=== PATIENT | female | born 1995 | race Caucasian/White ===

== ENCOUNTER 2017-01-12 11:04 | Emergency (ER) | payer BC ==
[2017-01-12 11:10] VITALS: BP 109/64; PULSE 76; TEMP 98.1; BMI 31.6
--- NOTE | 2017-01-12 11:19 | PDOC ---
History of Present Illness - General Chief Complaint: Pain, Acute Stated Complaint: low abd pain Time Seen by Provider: 01/12/17 11:08 History Source: Patient (Patient walked in along with referred by Dr Shea (PMD) with I spoke and he expressed concerns that the patient presentation may indicate an acute apendicitis. Patient reported acute sharp pain in the lower abdomen , right more than left side of new onset prior to arrival to her PMD today ), Care Provider Exam Limitations: No Limitations - History of Present Illness Timing/Duration: 24 hours Severity: moderate, severe Modifying Factors: worse with: cold therapy, eating, immobilization, medication , movement, rest, other Associated Symptoms: denies: denies symptoms, chest pain, cough, diaphoresis, fever/chills, headaches, loss of appetite, malaise, nausea/vomiting, rash, seizure, shortness of breath, syncope, weakness, other Past History - Travel Traveled outside of the country in the last 30 days: No Close contact w/someone who was outside of country & ill: No - Past Medical History Allergies/Adverse Reactions: Allergies Allergy/AdvReac Type Severity Reaction Status Date / Time No Known Allergies Allergy Verified 01/12/17 11:05 Home Medications: Ambulatory Orders Clonazepam [KlonoPIN] 0.5 mg PO DAILY 01/12/17 Dextroamphetamine/Amphetamine [Adderall Xr 20 mg Capsule] 20 mg PO DAILY Asthma: No Cancer: No Cardiac Disorders: No Diabetes: No HTN: No Psychiatric Problems: Yes (ANXIETY) Seizures: No Thyroid Disease: No - Surgical History Other Surgical History: IUD 01/13/17 15:24 - Reproductive History LMP Normal: Yes Is Patient Now?: No (#): 1 Para: 1 Spontaneous : 0 - Immunization History Immunization Up to Date: Yes - Psycho/Social/Smoking Cessation Hx Anxiety: Yes Suicidal Ideation: No Smoking History: Current every day smoker Have you smoked in the past 12 months: Yes Number of Cigarettes Smoked Daily: 10 Information on smoking cessation initiated: Yes 'Breaking Loose' booklet given: 04/08/13 Hx Alcohol Use: No Drug/Substance Use Hx: No Substance Use Type: None Hx Substance Use Treatment: No Review of Systems - Review of Systems Able to Perform ROS?: Yes Is the patient limited Romansh proficient: Yes Constitutional: Yes: Malaise HEENTM: No: Symptoms Reported, See HPI, Eye Pain, Blurred Vision, Tearing, Recent change in vision, Double Vision, Cataracts, Ear Pain, Ocular Prothesis, Ear Discharge, Nose Pain, Nose Congestion, Tinnitus, Nose Bleeding, Hearing Loss , Throat Pain, Throat Swelling, Mouth Pain, Dental Problems, Difficulty Swallowing, Mouth Swelling, Other Respiratory: No: Symptoms reported, See HPI, Cough, Orthopnea, Shortness of Breath, SOB with Exertion, SOB at Rest, Stridor, Wheezing, Productive cough, Hemoptysis, Other Cardiac (ROS): No: Symptoms Reported, See HPI, Chest Pain, Edema, Irregular Heart Rate, Lightheadedness, Palpitations, Syncope, Chest Tightness, Other ABD/GI: Yes: Symptoms Reported, See HPI : No: Symptoms Reported, See HPI, Burning, Dysuria, Discharge, Frequency, Flank Pain, Hematuria, Incontinence, Pain, Urgency, Testicular Mass, Testicular Swelling, Lesions, Testicular Pain, Other Musculoskeletal: No: Symptoms Reported, See HPI, Back Pain, Gout, Joint Pain, Joint Swelling, Muscle Pain, Muscle Weakness, Neck Pain, Joint Stiffness, Other Integumentary: No: Symptoms Reported, See HPI, Bruising, Change in Color, Change in Hair/Nails, Dryness, Erythema, Flushing, Lesions, Lumps, Pallor, Pruritus, Rash, Sweating, Other Neurological: No: Symptoms reported, See HPI, Headache, Numbness, Paresthesia, Pre-Existing Deficit, Seizure, Tingling, Tremors, Weakness, Unsteady Gait, Ataxia, Dizziness, Other Psychiatric: Yes: Anxiety All Other Systems: Reviewed and Negative *Physical Exam - Physical Exam Comments: 01/13/17 15:48 General Appearance: Yes: Nourished, Appropriately Dressed, Moderate Distress HEENT: positive: HEAVENLY Neck: positive: Supple Respiratory/Chest: positive: Lungs Clear Cardiovascular: positive: Regular Rate Gastrointestinal/Abdominal: positive: Normal Bowel Sounds, Tender (Bilateral lower abdomen pain at deeper palpation, minimal to moderate rebound tenderness) Lymphatic: negative: Adenopathy Musculoskeletal: positive: Normal Inspection Extremity: positive: Normal Capillary Refill Integumentary: positive: Normal Color, Dry, Warm Neurologic: positive: Fully Oriented, Alert, Normal Mood/Affect ED Treatment Course - LABORATORY CBC & Chemistry Diagram: 01/12/17 11:24 01/12/17 11:55 Medical Decision Making - Medical Decision Making Patient seen immediately from arrival, examined , tests ordered. My working diagnosis was subacute ovarian cyst rupture, remotely AP. Observed for 5 hours every hour by the hour, iv fluids, pain control achieved 01/13/17 15:50 *DC/Admit/Observation/Transfer Diagnosis at time of Disposition: Pelvic pain, Rupture of ovarian cyst - Discharge Dispostion Disposition: HOME Condition at time of disposition: Stable Admit: No - Referrals Referrals: Krystina Shea MD [Primary Care Provider] - - Patient Instructions Printed Discharge Instructions: DI for Ovarian Cyst
[2017-01-12] MEDS ORDERED: SODIUM CHLORIDE 1,000 ML IV ONE (11:22)
[2017-01-12 11:31] LABS: URINE APPEARANCE Clear; URINE BILIRUBIN Negative (NEGATIVE); URINE BLOOD Negative (NEGATIVE); URINE GLUCOSE (UA) Negative (NEGATIVE); URINE KETONE Negative (NEGATIVE); URINE LEUK ESTERASE Negative (NEGATIVE); URINE NITRITE Negative (NEGATIVE); URINE PROTEIN Negative (NEGATIVE); URINE UROBILINOGEN 0.2 (0.2-1.0)
[2017-01-12 11:35] LABS: URINE COLOR YELLOW
[2017-01-12 12:08] LABS: INR 1.06 (0.82-1.09); PROTHROMBIN TIME (PATIENT) 11.8 SEC (10.2-13.0)
[2017-01-12 12:25] LABS: ALBUMIN 4.2 g/dl (3.5-5.0); ALK PHOS 58 U/L (32-92); ANION GAP 4 (8-16); BILIRUBIN,TOTAL 0.5 mg/dl (0.2-1.0); CALCIUM 9.2 mg/dl (8.4-10.2); CO2 26 mmol/L (22-28); CREATININE 0.6 mg/dl (0.6-1.3); GLUCOSE,RANDOM 94 mg/dl (74-106); SGOT/AST 19 U/L (10-42); SGPT/ALT 24 U/L (10-40); TOT PROT 7.3 g/dl (6.4-8.3)
[2017-01-12 12:39] LABS: MCH 31.1 pg (25.7-33.7); MCHC 34.5 g/dl (32.0-36.0); MEAN CELL VOLUME 90.3 fl (80-96); RDW 12.6 % (11.6-15.6); WHITE BLOOD COUNT 9.9 K/mm3 (4.0-10.8)
[2017-01-12 13:13] LABS: PLATELET ESTIMATE ADEQUATE (NORMAL)
[2017-01-12 13:14] LABS: REACTIVE LYMPHOCYTES 2 % (0-80)
[2017-01-12] MEDS ORDERED: KETOROLAC TROMETHAMINE 30 MG/1 ML VIAL IVPUSH ONE (14:47)
[2017-01-12] MEDS ORDERED: KETOROLAC TROMETHAMINE 30 MG/1 ML VIAL ONE (14:56)
== END 2017-01-12 15:59 | disposition home or self-care (01) ==
LOC: FER 11:04
PROC: 3E0333Z Introduction of Anti-inflammatory into Peripheral Vein, Percutaneous Approach (ICD-10-PCS; principal; 2017-01-12)
PROC: 3E0337Z Introduction of Electrolytic and Water Balance Substance into Peripheral Vein, Percutaneous Approach (ICD-10-PCS; 2017-01-12)
DX: R10.2 Pelvic and perineal pain (principal); N83.299 Other ovarian cyst, unspecified side; F41.9 Anxiety disorder, unspecified; F17.210 Nicotine dependence, cigarettes, uncomplicated
CPT/HCPCS: 36415; 74177-TC; 76830-TC; 76856-TC; 80053; 81003; 84703; 85025; 85610; 99283-25

== ENCOUNTER 2017-03-23 17:38 | Emergency (ER) | payer BC ==
[2017-03-23 17:44] VITALS: BP 120/80; PULSE 87; TEMP 98.4; BMI 29.9
--- NOTE | 2017-03-23 17:46 | PDOC ---
History of Present Illness <Sathya Guerrero - Last Filed: 03/23/17 17:55> - General History Source: Patient Exam Limitations: No Limitations - History of Present Illness Initial Comments: 03/23/17 18:01 The patient is a 21 year old female(), with a significant past medical history of anxiety, who presents to the emergency department complaining of dislodged IUD since earlier this afternoon. The patient reports she was attempting to change her tampon, when she felt a string similar to her tampon in her vaginal vault. Patient reports attempting to pull on the string, but the object only came usp down from her uterus. Patient states she has an IUD in place and thinks this is the object that is stuck. She denies any abdominal pain , vaginal discharge, nausea, or vomiting. She denies any fever, chills, headache , or dizziness. She denies any dysuria, hematuria, frequency, or urgency. Allergies: NKDA Past Surgical History: None reported Social History: Current everyday smoker. No ETOH or recreational drug use. <Xavier Hendrix - Last Filed: 03/23/17 18:06> - General Chief Complaint: Foreign Body (FB) Stated Complaint: IUD FALLING OUT Time Seen by Provider: 03/23/17 17:41 Past History - Past Medical History Asthma: No Cancer: No Cardiac Disorders: No Diabetes: No HTN: No Psychiatric Problems: Yes (ANXIETY) Seizures: No Thyroid Disease: No - Reproductive History (#): 1 Para: 1 Spontaneous : 0 - Immunization History Immunization Up to Date: Yes - Suicide/Smoking/Psychosocial Hx Smoking History: Current every day smoker Have you smoked in the past 12 months: Yes Number of Cigarettes Smoked Daily: 10 'Breaking Loose' booklet given: 04/08/13 Hx Alcohol Use: No Drug/Substance Use Hx: No Substance Use Type: None Hx Substance Use Treatment: No <Sathya Guerrero - Last Filed: 03/23/17 17:55> <Xavier Hendrix - Last Filed: 03/23/17 18:06> - Past Medical History Allergies/Adverse Reactions: Allergies Allergy/AdvReac Type Severity Reaction Status Date / Time No Known Allergies Allergy Verified 03/23/17 17:39 Home Medications: Ambulatory Orders Clonazepam [KlonoPIN] 0.5 mg PO DAILY 01/12/17 Dextroamphetamine/Amphetamine [Adderall Xr 20 mg Capsule] 20 mg PO DAILY Review of Systems - Review of Systems Able to Perform ROS?: Yes Comments:: 03/23/17 18:01 GENERAL/CONSTITUTIONAL: No fever or chills. No weakness. HEAD, EYES, EARS, NOSE AND THROAT: No change in vision. No ear pain or discharge. No sore throat. CARDIOVASCULAR: No chest pain or shortness of breath. RESPIRATORY: No cough, wheezing, or hemoptysis. GASTROINTESTINAL: No nausea, vomiting, diarrhea or constipation. GENITOURINARY: Yes dislodges IUD. No dysuria, frequency, or change in urination. MUSCULOSKELETAL: No joint or muscle swelling or pain. No neck or back pain. SKIN: No rash NEUROLOGIC: No headache, vertigo, loss of consciousness, or change in strength/ sensation. ENDOCRINE: No increased thirst. No abnormal weight change. HEMATOLOGIC/LYMPHATIC: No anemia, easy bleeding, or history of blood clots. ALLERGIC/IMMUNOLOGIC: No hives or skin allergy. <Xavier Hendrix - Last Filed: 03/23/17 18:06> *Physical Exam - Vital Signs Last Vital Signs Temp Pulse Resp BP Pulse Ox 98.4 F 87 16 120/80 100 03/23/17 17:39 03/23/17 17:39 03/23/17 17:39 03/23/17 17:39 03/23/17 17:39 - Physical Exam Comments: 03/23/17 18:04 GENERAL: Awake, alert, and fully oriented, in no acute distress HEAD: No signs of trauma EYES: PERRLA, EOMI, sclera anicteric, conjunctiva clear ENT: Auricles normal inspection, hearing grossly normal, nares patent, oropharynx clear without exudates. Moist mucosa NECK: Normal ROM, supple, no lymphadenopathy, JVD, or masses LUNGS: Breath sounds equal, clear to auscultation bilaterally. No wheezes, and no crackles HEART: Regular rate and rhythm, normal S1 and S2, no murmurs, rubs or gallops ABDOMEN: Soft, nontender, normoactive bowel sounds. No guarding, no rebound. No masses PELVIC: IUD was removed with reign forceps completely intact, patient did not desire to keep it, IUD was thrown away. No cervical motion tenderness, no blood in the vaginal vault EXTREMITIES: Normal range of motion, no edema. No clubbing or cyanosis. No cords, erythema, or tenderness NEUROLOGICAL: Cranial nerves II through XII grossly intact. Normal speech, normal gait SKIN: Warm, Dry, normal turgor, no rashes or lesions noted. <Xavier Hendrix - Last Filed: 03/23/17 18:06> *DC/Admit/Observation/Transfer - Attestations Physician Attestion: 03/23/17 17:46 I, Dr. Sathya Guerrero, attest that this document has been prepared under my direction and personally reviewed by me in its entirety. I further attest, that it accurately reflects all work, treatment, procedures and medical decision -making performed by me. <Sathya Guerrero - Last Filed: 03/23/17 17:55> - Attestations Scribe Attestion: 03/23/17 18:06 Documentation prepared by Xavier Hendrix, acting as emergency medical services coordinator for Sathya Guerrero DO. <Xavier Hendrix - Last Filed: 03/23/17 18:06> Diagnosis at time of Disposition: Encounter for removal of intrauterine contraceptive device (IUD) - Discharge Dispostion Disposition: HOME Condition at time of disposition: Improved - Patient Instructions Additional Instructions: Sherron Lester this happened on . Follow up with your [facility] Doctor next week. Remember you are not protected from now so you should use a condom until you get on birthcontrol. Best- Dr. Sathya Guerrero
== END 2017-03-23 18:00 | disposition home or self-care (01) ==
LOC: FER 17:38
DX: Z30.432 Encounter for removal of intrauterine contraceptive device (principal); F41.9 Anxiety disorder, unspecified
CPT/HCPCS: 99281-25

== ENCOUNTER 2021-11-25 06:21 | Emergency (ER) | payer BC ==
[2021-11-25] MEDS ORDERED: ACETAMINOPHEN 1000 MG/100 ML BAG IVPB ONE (06:41)
[2021-11-25] MEDS ORDERED: SODIUM CHLORIDE 1,000 ML IV STA (06:41)
[2021-11-25] MEDS ORDERED: ACETAMINOPHEN INJECTION 100 ML IVPB ONE (06:52)
[2021-11-25 07:33] LABS: HEMATOCRIT 40.6 % (32.4-45.2); HEMOGLOBIN 14.1 G/dL (10.7-15.3); MCH 31.6 pg (25.7-33.7); MCHC 34.7 g/dl (32.0-36.0); MEAN CELL VOLUME 91.2 fl (80-96); MEAN PLT VOLUME 8.3 fl (7.5-11.1); PLATELET COUNT 281.6 10^3/uL (134-434); RBC 4.45 10^6/uL (3.60-5.2); RDW 13.6 % (11.6-15.6); WHITE BLOOD COUNT 8.5 10^3/uL (4.0-10.8)
[2021-11-25 07:41] LABS: ALBUMIN 3.5 g/dl (3.4-5.0); BILIRUBIN,TOTAL 0.7 mg/dl (0.2-1); CALCIUM 8.6 mg/dl (8.5-10); CREATININE 0.6 mg/dl (0.55-1.3); HCG,QUALITATIVE URINE Negative; TOT PROT 6.1 g/dl (6.4-8.2)
[2021-11-25 08:06] LABS: PLATELET ESTIMATE ADEQUATE
[2021-11-25 09:58] VITALS: BP 116/76; PULSE 78; RESP 18; TEMP 98.3
== END 2021-11-25 10:08 | disposition home or self-care (01) ==
LOC: FER 06:21
PROC: 3E033GC Introduction of Other Therapeutic Substance into Peripheral Vein, Percutaneous Approach (ICD-10-PCS; principal; 2021-11-25)
DX: N83.209 Unspecified ovarian cyst, unspecified side (principal)
CPT/HCPCS: 36415; 76856-TC; 80053; 81003; 84703; 85027; 99284-25

== ENCOUNTER 2022-07-08 01:16 | Emergency (ER) | payer BC ==
[2022-07-08 01:22] VITALS: BP 115/78; RESP 16
[2022-07-08] MEDS ORDERED: SODIUM CHLORIDE 1,000 ML IV ONE (01:35)
[2022-07-08] MEDS ORDERED: IBUPROFEN 600 MG TABLET (FP) PO ONE ×2 (01:35→01:41)
[2022-07-08] MEDS ORDERED: ONDANSETRON 4 MG/2 ML VIAL IVPB ONE (01:42)
[2022-07-08] MEDS ORDERED: ONDANSETRON 4 MG/2 ML VIAL ONE ×2 (01:42→01:47)
[2022-07-08 03:07] LABS: URINE APPEARANCE CLEAR; URINE BILIRUBIN NEGATIVE (NEGATIVE); URINE COLOR YELLOW; URINE GLUCOSE (UA) NEGATIVE (NEGATIVE); URINE KETONE NEGATIVE (NEGATIVE); URINE LEUK ESTERASE NEGATIVE (NEGATIVE); URINE NITRITE NEGATIVE (NEGATIVE); URINE PROTEIN NEGATIVE (NEGATIVE); URINE UROBILINOGEN 0.2 mg/dL (0.2-1.0)
[2022-07-08 03:21] VITALS: PULSE 92; TEMP 98.2
[2022-07-08 08:25] LABS: HCG,QUALITATIVE URINE NEGATIVE
== END 2022-07-08 03:30 | disposition home or self-care (01) ==
LOC: FER 01:16
PROC: 3E033GC Introduction of Other Therapeutic Substance into Peripheral Vein, Percutaneous Approach (ICD-10-PCS; principal; 2022-07-08)
DX: B34.9 Viral infection, unspecified (principal)
CPT/HCPCS: 81003; 84703; 99284-25